=== PATIENT | female | born 1980 | race Caucasian/White ===

== ENCOUNTER → 2017-03-01 | Outpatient (CLI) | payer BC ==
[~2017-03-01] MED LIST: AMOX875 PO
[2017-03-01 11:57] LABS: BICARBONATE 28.4 MEQ/L (21.0-32.0); POTASSIUM 4.2 MEQ/L (3.5-5.1)
[2017-03-01 12:07] LABS: FREE T3 2.26 PG/ML (2.18-3.98); FREE T4 0.9 NG/DL (0.76-1.46)
[2017-03-03 19:53] LABS: THYROGLOB ABS LESS THAN 1 IU/mL (< OR = 1)
== END ==
LOC: CLAB 10:22
PROVIDERS: ATTEND Internal Medicine Endocrinology, Diabetes & Metabolism
DX: E03.9 Hypothyroidism, unspecified (principal); E64.9 Sequelae of unspecified nutritional deficiency; E66.9 Obesity, unspecified
CPT/HCPCS: 36415; 80048; 84439; 84443; 84481; 86376; 86800